=== PATIENT | female | born 1950 | race Caucasian/White ===

== ENCOUNTER → 2024-02-10 14:24 | Outpatient (REF) | payer MEDICARE, OTHER, SELFPAY | LOC: RAD 14:24 | PROVIDERS: ATTENDING PHYSICIAN Family Medicine; OTHER PHYSICIAN Internal Medicine Rheumatology; REFERRING PHYSICIAN Orthopaedic Surgery | DX: M25.562 Pain in left knee (principal); M54.2 Cervicalgia | CPT/HCPCS: 72052; 73564 ==

== ENCOUNTER → 2024-02-22 20:25 | Outpatient (REF) | payer MEDICARE, OTHER, SELFPAY | LOC: MRI 20:25 | PROVIDERS: ATTENDING PHYSICIAN Family Medicine | DX: R93.6 Abnormal findings on diagnostic imaging of limbs (principal); S83.207A Unspecified tear of unspecified meniscus, current injury, left knee, initial encounter; M25.562 Pain in left knee | CPT/HCPCS: 73721 ==

== ENCOUNTER 2025-01-03 20:25 | Emergency (ER) | payer MEDICARE, OTHER, SELFPAY ==
[2025-01-03 20:43] VITALS: BP 149/103
[2025-01-03 20:44] VITALS: BMI 26.8
[2025-01-03 20:45] VITALS: BP 149/103
--- NOTE | 2025-01-03 20:49 | ED.GENMED ---
History of Present Illness
General
Chief Complaint: Chest Pain
Time Seen by Provider: 01/03/25 20:49
History of Present Illness
History of Present Illness:
TIME OF INITIAL ENCOUNTER: 8:50 PM
HPI: About an hour ago, the patient reports having a sensation of heartburn feeling in the right upper chest. This was associated with palpitations. She was found to be in rapid A-fib. While I was in the room, she spontaneously converted to a
sinus rhythm. Since then, all symptoms have resolved. She had a hackler doll wigs that she saw at [facility] who says that she had a calcium score of 0.
EXAM:
GENERAL: Well appearing in no distress
HEENT: Moist oral mucosa
CARDIOVASCULAR: No murmurs, normal heart rate, regular rhythm, No chest wall tenderness (I evaluated her chest after she converted to a sinus rhythm)
PULMONARY: No respiratory distress, breath sounds are clear and equal
ABDOMEN: Soft with no peritoneal signs, no tenderness
NEUROLOGIC: Excellent strength all extremities, no coordination deficits
PSYCHIATRIC: Appropriate mental status, normal insight and judgement
EXTREMITIES: Nontender, no edema, moves all extremities equally
SKIN: No rash, no lesions
NUMBER AND COMPLEXITY OF PROBLEMS ADDRESSED AT THE ENCOUNTER
� Chronic conditions affecting care: Frequent headaches/migraines, has had acute renal failure in the past
� Acute Exacerbation and/or Progression of Chronic Illness: This is an acute problem
� Differential Diagnosis includes: Rapid A-fib, electrolyte abnormality, thyroid disease, doubt ACS as all symptoms resolved once patient converted to a sinus rhythm
AMOUNT AND/OR COMPLEXITY OF DATA TO BE REVIEWED AND ANALYZED
� I performed an independent evaluation of and my interpretation is:
EKG: A-fib 159, nonspecific ST abnormality
CT:
X-rays:
Laboratory Studies: CBC unremarkable, chemistries unremarkable however the glucose is 189 (patient did have a high sugar containing food just prior to arrival)
Other:
� Review of other/old records: I reviewed records, the patient was here with a colonoscopy several years ago
� Clinical information was obtained by an independent historian: I spoke with patient's daughter who came down from [place] after patient was discharged
� Prescriptions/Medications Considered but not given:
� Further testing considered but not performed:
RISK OF COMPLICATIONS AND/OR MORBIDITY OR MORTALITY OF PATIENT MANAGEMENT
� Social determinants of health affecting care: Lives at home
� Discussion with other providers: Discussed case with Dr. Payne
� Escalation of care including admission/observation vs risk of discharge considered: She was found to be in rapid A-fib. While I was in the room, she spontaneously converted to a sinus rhythm. Since then, all symptoms have
resolved.
ANY OTHER UPDATES:
Past History
Past History
ED Past Medical History: None and Other (Interstitial nephritis )
ED Past Surgical History: None
Social History
Tobacco: Non-smoker
Alcohol: None
Living: with family
Employment: Employed
Family History
Family History: Diabetes and CAD
Phy Exam
Physical Exam
Physical Exam:
See HPI
Scores
Heart Score for Chest Pain Patients
STEMI patient?: Not applicable
Course
Orders/Labs/Results
Orders:
Orders
01/03/25 20:26
EKG [Electrocardiogram (*1)] Urgent
Reason for Study: Chest Pain
EKG- Treatment ONCE
01/03/25 20:50
Complete Blood Count/With Diff Urgent
Comprehensive Metabolic Panel Urgent
TSH Reflex To Free T4 Urgent
01/03/25 20:59
Electrocardiogram (*1) Urgent
Reason for Study: Atrial Fibrillation
EKG- Treatment ONCE
01/03/25 22:06
Apixaban [Eliquis] 5 mg PO NOW STA
Abnormal Lab Results
01/03/25
20:50
BUN 25 H mg/dl
(7-17)
Glucose 189 H mg/dl
(70-99)
ALT 45 H U/L
(0-35)
01/03/25 20:50
01/03/25 20:50
Vital Signs
Initial and Last Documented VS:
Initial Vital Signs
Pulse Resp BP
160 21 149/103
01/03/25 20:43 01/03/25 20:43 01/03/25 20:43
Last Documented Vital Signs
Temp Pulse Resp BP Pulse Ox
36.7 C 70 21 112/71 96
01/03/25 20:45 01/03/25 22:30 01/03/25 22:30 01/03/25 22:00 01/03/25 22:30
*Critical Care Note
Total Time (30-74mins, 75-104mins- exclusive of procedures): Not Applicable
ED Attending Note
-
Portions of this chart may have been created with voice recognition software.� Occasional wrong word or��sound alike� substitutions may have occurred due to the inherent limitations of voice recognition software.
Discharge Plan
Departure
Patient Disposition: Home (Routine Discharge)
Date of Disposition: 01/03/25
Time of Disposition: 22:03
Patient with high blood pressure during this ER visit?: Yes
Discharge Problem:
Atrial fibrillation with RVR
Prescriptions:
New
Eliquis 5 mg tablet
5 mg PO BID Qty: 60 0RF
metoprolol succinate 25 mg tablet extended release 24 hr
12.5 mg PO DAILY Qty: 14 0RF
No Action
calcium carbonate [Calcium 500] 500 MG tablet
2 cap PO BID
oxycodone-acetaminophen 5 MG/325 MG tablet
1 tab PO Q4HPRN PRN (Reason: pain) Qty: 10 0RF
diphenhydramine-acetaminophen [Tylenol PM Extra Strength] 1 EACH tablet
1 ea PO QPM
pseudoephedrine HCl [Sudogest] 60 MG tablet
60 mg PO BID
Patient Comments:
sinusis pressure, demarcus told her to take
Macrobid
PO BID
prednisone 20 MG tablet
20 mg PO DAILY
amlodipine 5 MG tablet
5 mg PO DAILY
omeprazole magnesium [Prilosec OTC] 20 MG tablet,delayed release (DR/EC)
20 mg PO DAILY
Referrals:
Awa Messina DO [Family Provider] -
Lisa Payne MD [Active] - Follow up in 2-3 days
Activity Restrictions/Additional Instructions:
Basic blood work is normal. We also checked thyroid testing which was normal. Your initial EKG showed a rate of 159 with atrial fibrillation and your rates here initially were as high as 190s. Without any intervention, you converted to a sinus
rhythm. I spoke to Dr. Payne. Please follow-up with her in their office. Call for an appointment.
Interventions
Interventions:
*Risk Screen - Suicide Last Done: 01/03/25 20:45
*General Assessment Last Done: 01/03/25 20:45
*Neglect/Abuse Screening Last Done: 01/03/25 20:45
*ED- Fall Risk Assessment Last Done: 01/03/25 20:45
*ED COVID-19 Vaccine History Last Done: 01/03/25 20:45
*Nursing Disposition Last Done: 01/03/25 22:40
ED- Cardiac Assessment Last Done: 01/03/25 20:52
Discharge Date and Time
Discharge Date/Time: 01/03/25 22:40
Print Language: BULGARIAN
[2025-01-03 20:58] LABS: % Basophils 1.2 % (0-2); % Eosinophils 0.9 % (0-6); % Immature Granulocytes 0.4 % (0-0.5); % Monocytes 6.1 % (1.7-9.3); % Neutrophils 60.4 % (42.2-75.2); Absolute Basophils 0.1 10^3/uL (0-0.2); Absolute Eosinophils 0.1 10^3/uL (0-0.7); Absolute Lymphocytes 3.3 10^3/uL (1.2-3.4); Absolute Monocytes 0.6 10^3/uL (0.1-0.6); Absolute Neutrophils 6.4 10^3/uL (1.4-6.5); Hematocrit 43.5 % (37.0-47.0); Hemoglobin 14.6 g/dL (12.0-16.0); Mean Corp Hgb Conc. 33.6 g/dL (33.0-37.0); Mean Corpuscular Hgb 29.7 pg (27.0-31.0); Mean Corpuscular Volume 88.4 fL (81.0-99.0); Nucleated Red Blood Cells % 0 %; Platelet Count 250 10^3/uL (130-400); Red Blood Cell Count 4.92 10^6/uL (4.20-5.40); Red Cell Dist. Width 13.2 % (11.5-14.5); White Blood Cell Count 10.5 10^3/uL (4.8-10.8)
[2025-01-03 21:00] VITALS: BP 131/82
[2025-01-03 21:13] LABS: ALT (SGPT) 45 U/L (0-35); AST (SGOT) 31 U/L (14-36); Albumin 4.4 g/dl (3.5-5.0); Alkaline Phosphatase 61 U/L (38-126); Blood Urea Nitrogen 25 mg/dl (7-17); Calcium 10.1 mg/dl (8.4-10.2); Carbon Dioxide 26 mmol/L (22-30); Chloride 106 mmol/L (98-107); Estimated Creatinine Clearance 65 ml/min; Glucose 189 mg/dl (70-99); Potassium 3.7 mmol/L (3.5-5.1); Sodium 142 mmol/L (135-145); Total Bilirubin 0.6 mg/dl (0.2-1.3); Total Protein 7.3 g/dl (6.3-8.2); eGFR > 60.00
[2025-01-03 21:44] LABS: TSH Reflex To Free T4 3.06 uIU/ml (0.47-4.68)
[2025-01-03 22:00] VITALS: BP 112/71
[2025-01-03] MEDS: ELIQUIS 5 MG PO (22:26)
== END 2025-01-03 22:40 | disposition home or self-care (01) ==
LOC: EMR 20:25
PROVIDERS: EMERGENCY PHYSICIAN Emergency Medicine; FAMILY PHYSICIAN Family Medicine
DX: I48.91 Unspecified atrial fibrillation (principal); Z82.49 Family history of ischemic heart disease and other diseases of the circulatory system; Z83.3 Family history of diabetes mellitus
CPT/HCPCS: 99284; 80053; 84443; 85025; 93005

== ENCOUNTER 2025-01-18 07:49 | Emergency (ER) | payer MEDICARE, OTHER, SELFPAY ==
[2025-01-18] VITALS (9 sets, daily range): BP systolic 75–173; BP diastolic 59–102; BMI 26.3
--- NOTE | 2025-01-18 08:11 | ED.GENMED ---
History of Present Illness
General
Chief Complaint: Blood Pressure Problem
Source: patient
Exam Limitations: none
Time Seen by Provider: 01/18/25 08:10
Nursing documentation reviewed up to this point in time: agreed with
History of Present Illness
History of Present Illness:
Patient is a 74-year-old female who presents to the ER for evaluation. Patient reports she was seen here in the ER 2 weeks ago diagnosed with A-fib converted on her own and sent home on metoprolol and Eliquis. She did not take the metoprolol
because her blood pressure was always normal and she has not had any symptoms. Prior to having A-fib she never took her blood pressure but since having A-fib she is checked her blood pressure twice a day. This morning she took her blood pressure
because she ' did not feel right,' and reports her blood pressure was elevated around 157/107. She also feels a little pressure in the left side of her chest however also has an injury to her rotator cuff and is not sure if this soreness was
related to that. She also reports she was recently using arm weights exercising and is not sure if this was a muscle pain.
Patient did feel little short of breath this morning as well. She also reported she was very anxious about her blood pressure and she believes this was a contributing factor.
She has a cardiology appointment scheduled in March
Past History
Past History
ED Past Medical History: None and Other (Interstitial nephritis )
ED Past Surgical History: None
Social History
Tobacco: Non-smoker
Alcohol: None
Living: with family
Employment: Employed
Family History
Family History: Diabetes and CAD
Review of Systems
Review of Systems
Allergies reviewed?: Yes
All Other Systems: ROS reviewed and negative except as documented in HPI and ROS
Constitutional: Reports no symptoms; Denies fever, fatigue or chills
EENT: Reports no symptoms
Respiratory: Reports trouble breathing (pt felt a little sob with s/s denies now )
Cardiac: Reports chest pain (mild left sided chest presure)
ABD/GI: Reports no symptoms
: Reports no symptoms
Musculoskeletal: Reports no symptoms
Skin: Reports no symptoms
Psychiatric: Reports no symptoms
Phy Exam
General Physical Exam
General Presentation: no apparent distress
General age: appears stated age
General Skin: warm and dry
General Habitus: normal
General Hydration: appears well hydrated
Cardiovascular Exam
Cardiovascular Exam: regular rate/rhythm, no murmur and normal peripheral pulses
Pulmonary Exam
Pulmonary Exam: lungs clear and no respiratory distress
Neurological Exam
Neurological Exam: alert and oriented x3
Musculoskeletal Exam
Musculoskeletal Exam: full ROM
Skin Exam
Skin Exam: normal color and warm/dry
Psychiatric Exam
Psychiatric Exam: normal mood/affect
Course
Orders/Labs/Results
Orders:
Orders
01/18/25 07:54
EKG [Electrocardiogram (*1)] Urgent
Reason for Study: Hypertension, Benign
EKG- Treatment ONCE
01/18/25 08:32
Cardiac Monitoring- Treatment ONCE
IV Insert/Care/Rem.- Treatment PRN
01/18/25 08:39
Complete Blood Count/With Diff Urgent
Comprehensive Metabolic Panel Urgent
Troponin I Urgent
01/18/25 10:36
EKG- Treatment ONCE
01/18/25 11:30
Electrocardiogram (*1) Stat
Reason for Study: Other
Other Reason for Exam: chest pain
01/18/25 11:34
Troponin I Urgent
Abnormal Lab Results
01/18/25
08:39
Neutrophils % 78.1 H %
(42.2-75.2)
Lymphocytes % 15.3 L %
(20.5-51.1)
Chloride 109 H mmol/L
(98-107)
BUN 21 H mg/dl
(7-17)
Glucose 106 H mg/dl
(70-99)
01/18/25 08:39
01/18/25 08:39
Vital Signs
Initial and Last Documented VS:
Initial Vital Signs
Temp Pulse Resp BP Pulse Ox
98.4 F 69 18 173/102 100
01/18/25 07:50 01/18/25 07:50 01/18/25 07:50 01/18/25 07:50 01/18/25 07:50
Last Documented Vital Signs
Temp Pulse Resp BP Pulse Ox
98.4 F 62 14 128/89 98
01/18/25 07:50 01/18/25 13:00 01/18/25 13:00 01/18/25 13:00 01/18/25 13:00
MDM/Problems Addressed
Differential Diagnosis Includes:
Not limited to ACS, arrhythmia muscular pain elevated blood pressure
MDM/Problems Addressed:
Patient is a 74-year-old female who was diagnosed with A-fib 2 weeks ago on Eliquis at that time she was given metoprolol but did not start it. She has been taking her blood pressure since and this morning took her blood pressure was elevated she
reports she did not feel right. In addition she had some left-sided chest pressure. She also reports she was exercising and was not sure if she injured her chest wall muscle. She presented to the ER because of the elevated blood pressure and on
arrival presented awake alert no acute distress initial cardiac troponin negative repeat cardiac troponin very minimally elevated however clinically insignificant. No acute findings on EKG patient has been in normal rhythm here in the ER.
Patient's blood pressure was initially elevated however repeat blood pressure on the lower side and patient reports her blood pressure runs in the low 100s. Her pulse has been in the 50s 60s.
She reports she is trying to see Dr. Payne but she did not have any appointments soon.
Case reviewed with Dr. Payne I did review troponins and pt's presentation.
Patient is in no acute distress and well-appearing here in the ER will have follow-up with cardiology discussed with patient to monitor her blood pressure however she may hold off on metoprolol because her heart rate and blood pressure runs low
normally.
She was placed on the chest pain hotline to expedite follow-up
*Pulse Oximetry
Patient hypoxic: no
*EKG
Interpreted by ED Provider?: Yes
Heart Rate: 68
Rate: normal
Rhythm: sinus
Ischemia: non-specific ST changes
*Critical Care Note
Total Time (30-74mins, 75-104mins- exclusive of procedures): Not Applicable
Data Reviewed
Review of Other/Old Records Reveals: Labs and Other (previous ED visit)
Patient Management
Discussion with other providers: Rubber Molder (cardiology, DR Payne )
ED Attending Note
-
Portions of this chart may have been created with voice recognition software.� Occasional wrong word or��sound alike� substitutions may have occurred due to the inherent limitations of voice recognition software.
Discharge Plan
Departure
Patient Disposition: Home (Routine Discharge)
Date of Disposition: 01/18/25
Time of Disposition: 13:29
Patient with high blood pressure during this ER visit?: Yes
Condition: Fair
Covid-19: Not Applicable
Discharge Problem:
Elevated blood pressure reading, Chest pain
Instructions: Chest Pain CBC Follow Up, BLOOD PRESSURE
Prescriptions:
No Action
diphenhydramine-acetaminophen [Tylenol PM Extra Strength] 1 EACH tablet
1 ea PO QPM
Eliquis 5 mg tablet
5 mg PO BID Qty: 60 0RF
metoprolol succinate 25 mg tablet extended release 24 hr
12.5 mg PO DAILY Qty: 14 0RF
Patient Comments:
Pt has not started this
Referrals:
Awa Messina DO [Family Provider] -
Lisa Payne MD [Active] -
Activity Restrictions/Additional Instructions:
As discussed log your blood pressure as discussed. Please closely follow-up with your family doctor in the next several days for reevaluation of your blood pressure. In addition please follow with cardiology. You were placed on the chest pain
hotline which means you should receive a call in the next 1 to 2 days if you do not please give the office a call.
Return if any worsening of symptoms.
Interventions
Interventions:
*Risk Screen - Suicide Last Done: 01/18/25 07:50
*General Assessment Last Done: 01/18/25 07:50
*Neglect/Abuse Screening Last Done: 01/18/25 07:50
*ED COVID-19 Vaccine History Last Done: 01/18/25 07:50
*Nursing Disposition Last Done: 01/18/25 13:38
ED- Cardiac Assessment Last Done: 01/18/25 08:18
ED- Neurological Assessment Last Done: 01/18/25 08:04
ED- Pulmonary Assessment Last Done: 01/18/25 08:18
Discharge Date and Time
Discharge Date/Time: 01/18/25 13:39
Print Language: KISWAHILI
[2025-01-18 08:46] LABS: % Basophils 1.1 % (0-2); % Eosinophils 0.4 % (0-6); % Immature Granulocytes 0.2 % (0-0.5); % Lymphocytes 15.3 % (20.5-51.1); % Monocytes 4.9 % (1.7-9.3); % Neutrophils 78.1 % (42.2-75.2); Absolute Basophils 0.1 10^3/uL (0-0.2); Absolute Lymphocytes 1.2 10^3/uL (1.2-3.4); Absolute Monocytes 0.4 10^3/uL (0.1-0.6); Absolute Neutrophils 6.3 10^3/uL (1.4-6.5); Hematocrit 41.7 % (37.0-47.0); Hemoglobin 14.3 g/dL (12.0-16.0); Mean Corp Hgb Conc. 34.3 g/dL (33.0-37.0); Mean Corpuscular Hgb 29.8 pg (27.0-31.0); Mean Corpuscular Volume 86.9 fL (81.0-99.0); Mean Platelet Volume 10.1 fL (7.4-10.4); Nucleated Red Blood Cells % 0 %; Platelet Count 210 10^3/uL (130-400); White Blood Cell Count 8.1 10^3/uL (4.8-10.8)
[2025-01-18 09:22] LABS: ALT (SGPT) 27 U/L (0-35); AST (SGOT) 22 U/L (14-36); Albumin 3.8 g/dl (3.5-5.0); Alkaline Phosphatase 50 U/L (38-126); Blood Urea Nitrogen 21 mg/dl (7-17); Calcium 9.4 mg/dl (8.4-10.2); Carbon Dioxide 27 mmol/L (22-30); Chloride 109 mmol/L (98-107); Estimated Creatinine Clearance 64 ml/min; Glucose 106 mg/dl (70-99); Potassium 4.1 mmol/L (3.5-5.1); Sodium 141 mmol/L (135-145); Total Bilirubin 0.6 mg/dl (0.2-1.3); Total Protein 6.7 g/dl (6.3-8.2); eGFR > 60.00
[2025-01-18 09:33] LABS: Troponin I < 0.012 ng/ml
[2025-01-18 12:04] LABS: Troponin I 0.015 ng/ml
== END 2025-01-18 13:39 | disposition home or self-care (01) ==
LOC: EMR 07:49
PROVIDERS: Nurse Practitioner; EMERGENCY PHYSICIAN Emergency Medicine; FAMILY PHYSICIAN Family Medicine
DX: I48.91 Unspecified atrial fibrillation (principal); I10 Essential (primary) hypertension; Z79.01 Long term (current) use of anticoagulants; Z79.899 Other long term (current) drug therapy
CPT/HCPCS: 99284; 80053; 84484; 85025; 93005

== ENCOUNTER → 2025-02-15 13:48 | Outpatient (REF) | payer MEDICARE, OTHER, SELFPAY | LOC: RCS 13:48 | PROVIDERS: ATTENDING PHYSICIAN Internal Medicine Cardiovascular Disease; FAMILY PHYSICIAN Family Medicine | DX: I48.0 Paroxysmal atrial fibrillation (principal); E78.2 Mixed hyperlipidemia; R29.818 Other symptoms and signs involving the nervous system; R03.0 Elevated blood-pressure reading, without diagnosis of hypertension | CPT/HCPCS: 93306 ==

== ENCOUNTER → 2025-04-16 15:30 | Outpatient (REF) | payer MEDICARE, OTHER, SELFPAY | LOC: RCS 15:30 | PROVIDERS: ATTENDING PHYSICIAN Family Medicine | DX: Z86.79 Personal history of other diseases of the circulatory system (principal); H53.8 Other visual disturbances; R42 Dizziness and giddiness | CPT/HCPCS: 93005 ==

== ENCOUNTER 2025-04-17 13:42 | Emergency (ER) | payer MEDICARE, OTHER, SELFPAY ==
[2025-04-17 13:45] VITALS: BP 190/93
[2025-04-17 13:59] LABS: Hematocrit 41.4 % (37.0-47.0); Hemoglobin 14.0 g/dL (12.0-16.0); Mean Corp Hgb Conc. 33.8 g/dL (33.0-37.0); Mean Corpuscular Volume 86.8 fL (81.0-99.0); Nucleated Red Blood Cells % 0 %; Platelet Count 231 10^3/uL (130-400); Red Cell Dist. Width 12.6 % (11.5-14.5)
[2025-04-17 14:11] LABS: ALT (SGPT) 40 U/L (0-35); AST (SGOT) 28 U/L (14-36); Albumin 4.5 g/dl (3.5-5.0); Alkaline Phosphatase 51 U/L (38-126); Blood Urea Nitrogen 16 mg/dl (7-17); Calcium 9.5 mg/dl (8.4-10.2); Carbon Dioxide 24 mmol/L (22-30); Chloride 103 mmol/L (98-107); Glucose 101 mg/dl (70-99); Potassium 4.3 mmol/L (3.5-5.1); Sodium 134 mmol/L (135-145); Total Protein 7.2 g/dl (6.3-8.2); eGFR > 60.00
[2025-04-17 14:22] LABS: Troponin I < 0.012 ng/ml
[2025-04-17 15:27] VITALS: BP 163/88
[2025-04-17 16:56] VITALS: BP 106/75
[2025-04-17 17:07] VITALS: BMI 26.7
[2025-04-17 17:12] VITALS: BP 146/85
[2025-04-17 17:26] VITALS: BP 157/82
--- NOTE | 2025-04-17 18:12 | ED.GENMED ---
History of Present Illness
General
Chief Complaint: Cardiac Symptoms
Source: patient
Exam Limitations: none
Time Seen by Provider: 04/17/25 16:46
Nursing documentation reviewed up to this point in time: agreed with
History of Present Illness
History of Present Illness:
Patient presents to ED for evaluation secondary to elevated blood pressure along with abnormal EKG obtained at primary care's office. Patient states that she went to see her primary care physician yesterday, secondary to intermittent dizziness with
blurred vision. During the visit, primary care physician was unable to obtain her EKG. As such, outpatient EKG was ordered. Patient received phone call at home telling her that her EKG appeared to be different from what she had obtained in the
past. Primary care physician is to contact her pens and pencils dipper, Dr. DAVID Goodwin, to discuss. In the meantime, patient experienced shortness of breath this morning after speaking with her daughter, during which time she was upset. Patient feels that her
shortness of breath is secondary to her emotional state. In addition, patient reports left-sided chest pain, since starting exercise at home for left shoulder pain from previous rotator cuff injury. Denies recent travel or surgery. Denies back
pain. Denies leg pain or swelling. Patient states that since changing her glasses to the 1 from the past, her blurred vision has improved. Patient has not seen her medical supply technician in some time but knows that she does need to. There is no family
history of heart disease. Denies recent change in medications or diet. Denies recent illness. Shortly prior to arrival in ED, patient states that she received phone call from her doctor's office telling her that primary care physician spoke with
Dr. Henny Goodwin who felt that her EKG did not reveal anything concerning.
Past History
Past History
ED Past Medical History: None and Other (Interstitial nephritis )
ED Past Surgical History: None
Social History
Tobacco: Non-smoker
Alcohol: None
Living: with family
Employment: Employed
Family History
Family History: Diabetes and CAD
Review of Systems
Review of Systems
Allergies reviewed?: Yes
All Other Systems: ROS reviewed and negative except as documented in HPI and ROS
Constitutional: Reports no symptoms
Respiratory: Reports trouble breathing
Cardiac: Reports chest pain
ABD/GI: Reports no symptoms
Musculoskeletal: Reports no symptoms
Skin: Reports no symptoms
Neurological: Reports dizzy and other (blurred vision)
Phy Exam
Physical Exam
Physical Exam:
Physical Exam
General: no apparent distress, not acutely ill. afebrile.
Head: nc/at. eomi
Neck: supple. no meningeal signs.
Heart: s1/s2 regular rate and rhythm
Lungs: no acute respiratory distress. clear bilaterally
Abdomen: normal bowel sounds. not tender.
Neuro: alert and oriented x 3. no focal neurological deficits. normal speech.
Skin: no rash
Psychiatric: well kept. interactive and cooperative
Extremities: no edema. no calf tenderness.
Course
Orders/Labs/Results
Orders:
Orders
04/17/25 13:42
Electrocardiogram (*1) Urgent
Reason for Study: Shortness of Breath
EKG- Treatment ONCE
04/17/25 13:49
Complete Blood Count/With Diff Urgent
Comprehensive Metabolic Panel Urgent
Troponin I Urgent
Abnormal Lab Results
04/17/25
13:49
Absolute Neuts (auto) 7.1 H 10^3/uL
(1.4-6.5)
Lymphocytes % 19.4 L %
(20.5-51.1)
Sodium 134 L mmol/L
(135-145)
Creatinine 0.5 L mg/dL
(0.6-1.0)
Glucose 101 H mg/dl
(70-99)
ALT 40 H U/L
(0-35)
04/17/25 13:49
04/17/25 13:49
Vital Signs
Initial and Last Documented VS:
Initial Vital Signs
Temp Pulse Resp BP Pulse Ox
98.2 F 68 16 190/93 98
04/17/25 13:45 04/17/25 13:45 04/17/25 13:45 04/17/25 13:45 04/17/25 13:45
Last Documented Vital Signs
Temp Pulse Resp BP Pulse Ox
97.9 F 58 15 154/82 98
04/17/25 17:06 04/17/25 18:22 04/17/25 18:22 04/17/25 18:22 04/17/25 18:22
MDM/Problems Addressed
MDM/Problems Addressed:
Patient presents with number of very nonspecific symptoms. Fortunately, patient with an unremarkable workup in ED, including blood work and EKG. Evaluation otherwise remains afebrile, hemodynamically stable, and neurologically intact on
observation. At this time, patient requesting to be discharged home, which I believe is reasonable, and she will follow-up with her primary care physician as well as medical supply technician.
*Pulse Oximetry
SaO2: 99
Nasal Cannula flow liters per minute: 99
Oxygen Mode of Delivery: Room air
Patient hypoxic: no
*Critical Care Note
Total Time (30-74mins, 75-104mins- exclusive of procedures): Not Applicable
ED Attending Note
-
Portions of this chart may have been created with voice recognition software.� Occasional wrong word or��sound alike� substitutions may have occurred due to the inherent limitations of voice recognition software.
Discharge Plan
Departure
Patient Disposition: Home (Routine Discharge)
Date of Disposition: 04/17/25
Time of Disposition: 18:13
Patient with high blood pressure during this ER visit?: Yes
Condition: Fair
Discharge Problem:
Hypertension, Dizziness
Instructions: High blood pressure - ED discharge instructions
Prescriptions:
No Action
diphenhydramine-acetaminophen [Tylenol PM Extra Strength] 1 EACH tablet
1 ea PO QPM
Eliquis 5 mg tablet
5 mg PO BID Qty: 60 0RF
metoprolol succinate 25 mg tablet extended release 24 hr
12.5 mg PO DAILY Qty: 14 0RF
Patient Comments:
Pt has not started this
Referrals:
Awa Messina DO [Family Provider, Family Practice]
Activity Restrictions/Additional Instructions:
As discussed, please follow-up with your primary care physician and medical supply technician for further evaluation and treatment
Interventions
Interventions:
*Risk Screen - Suicide Last Done: 04/17/25 13:47
*General Assessment Last Done: 04/17/25 17:07
*Neglect/Abuse Screening Last Done: 04/17/25 13:47
*ED- Fall Risk Assessment Last Done: 04/17/25 17:07
*ED COVID-19 Vaccine History Last Done: 04/17/25 17:07
*Nursing Disposition Last Done: 04/17/25 18:22
ED- Pulmonary Assessment Last Done: 04/17/25 17:17
ED- Cardiac Assessment Last Done: 04/17/25 17:16
Discharge Date and Time
Discharge Date/Time: 04/17/25 18:23
Print Language: GREEK
[2025-04-17 18:22] VITALS: BP 154/82
== END 2025-04-17 18:23 | disposition home or self-care (01) ==
LOC: EMR 13:42
PROVIDERS: Student in an Organized Health Care Education/Training Program; EMERGENCY PHYSICIAN Emergency Medicine; FAMILY PHYSICIAN Family Medicine
DX: I10 Essential (primary) hypertension (principal); R42 Dizziness and giddiness; R06.02 Shortness of breath
CPT/HCPCS: 99284; 80053; 84484; 85025; 93005

== ENCOUNTER 2025-04-23 06:33 | Day surgery (SDC) | payer MEDICARE, OTHER, SELFPAY | END 2025-04-23 15:06 | disposition home or self-care (01) | LOC: GI 06:33 | PROVIDERS: ATTENDING PHYSICIAN Internal Medicine Gastroenterology | DX: Z12.11 Encounter for screening for malignant neoplasm of colon (principal); D12.2 Benign neoplasm of ascending colon; D12.3 Benign neoplasm of transverse colon; K63.5 Polyp of colon; K57.30 Diverticulosis of large intestine without perforation or abscess without bleeding; K64.8 Other hemorrhoids; Z86.0100 Personal history of colon polyps, unspecified | CPT/HCPCS: 45380; 88305 ==